=== PATIENT | male | born 1950 | race Caucasian/White ===

== ENCOUNTER → 2020-02-28 | Outpatient (CLI) | payer MEDICARE ==
--- NOTE | 2020-02-28 17:51 | Diagnostic Imaging Report ---
Perfusion Lung Scan NOTE: Lung ventilation studies with xenon are not being performed per the recommendation of the [employer]. It is not possible to be certain that the ventilation system is adequately disinfected. Ventilation studies with Tc-99m DTPA particles is contraindicated because the delivery by nebulization generates too many water droplets from the patient's airway. Clinical Information: 69 M with dyspnea x 1 month Comparison: None available Discussion: Ventilation images were not obtained. See note above. Perfusion images of the lungs were obtained in multiple projections following intravenous administration of approximately 6 mCi of Tc-99m MAA. Distribution of tracer is irregular throughout the lungs., Widening of the left major fissure is noted. There are no segmental perfusion defects of any size. The cardiomediastinal silhouette is borderline enlarged. Impression: 1. Scan findings represent a LOW probability for acute pulmonary embolic disease based on the perfusion-only PIOPED II criteria. Ventilation imaging would not affect the assigned probability. 2. Scan findings are compatible with diffuse parenchymal and/or obstructive lung disease. Widening in the left major fissure may be due to loculated effusion or scarring. 3. Borderline enlarged cardiac silhouette. Signed by: Dr. Helga Fernandez M.D. on 02/28/2020 5:47 PM
== END ==
LOC: NM 17:21
PROVIDERS: ATTEND Internal Medicine Critical Care Medicine
DX: R06.00 Dyspnea, unspecified (principal)
CPT/HCPCS: 78597; A9540

== ENCOUNTER → 2021-01-25 | Outpatient (CLI) | payer MEDICARE ==
[2021-01-25 14:40] LABS: BASOPHILS # (AUTO) 0.1 (0.0-0.1); BASOPHILS % 0.9 % (0.0-1.0); EOSINOPHILS # (AUTO) 0.3 (0.0-0.4); EOSINOPHILS % 4.6 % (0.0-6.0); HEMATOCRIT 35.6 % (38.2-49.6); LYMPHOCYTES # (AUTO) 1.1 (1.0-3.2); LYMPHOCYTES % 17.4 % (18.0-39.1); MEAN CORPUSCULAR HEMOGLOBIN 28.5 pg (28-32); MEAN CORPUSCULAR HGB CONC 30.9 g/dL (31-35); MEAN CORPUSCULAR VOLUME 92.2 fL (81-99); MONOCYTES # (AUTO) 0.9 (0.2-0.8); MONOCYTES % 14.2 % (4.4-11.3); NEUTROPHILS % 62.6 % (38.7-80.0); PLATELET COUNT 191 x10e3/uL (140-360); RED BLOOD COUNT 3.86 x10e6/uL (4.3-5.7); RED CELL DISTRIBUTION WIDTH 14.5 % (11.7-14.4)
[2021-01-25 14:57] LABS: ALANINE AMINOTRANSFERASE 15 IU/L (0-55); ALBUMIN 3.6 g/dL (3.5-5.0); ALKALINE PHOSPHATASE 86 IU/L (40-150); ANION GAP 13.9 mmol/L (8-16); BLOOD UREA NITROGEN 17 mg/dL (7-26); BUN/CREATININE RATIO 15 (6-25); CALCIUM 8.7 mg/dL (8.4-10.2); CARBON DIOXIDE 33 mmol/L (22-29); CHLORIDE 98 mmol/L (98-107); CREATININE, SERUM 1.16 mg/dL (0.72-1.25); EST GLOMERULAR FILTRATION RATE > 60 ML/MIN (60-); GLUCOSE 113 mg/dL (74-118); POTASSIUM 4.9 mmol/L (3.5-5.1); SODIUM 140 mmol/L (136-145)
== END ==
LOC: LAB 13:34
PROVIDERS: ATTEND Internal Medicine Critical Care Medicine
DX: R06.00 Dyspnea, unspecified (principal)
CPT/HCPCS: 36415; 71046; 80053; 83880; 85025; 85379

== ENCOUNTER → 2021-02-08 | Outpatient (CLI) | payer MEDICARE ==
[~2021-02-08] MED LIST: IOPAMIDOL 370 MG/ML 200 ML INFUS..BTL INJ ONE; SODIUM CHLORIDE 0.9% 250ML 500 ML ONE; SODIUM CHLORIDE 0.9% 50ML 50 ML ONE
[2021-02-08 16:21] LABS: CREATININE, SERUM 1.31 mg/dL (0.72-1.25)
== END ==
LOC: CT 15:34
PROVIDERS: ATTEND Internal Medicine Critical Care Medicine
DX: R06.00 Dyspnea, unspecified (principal); R79.89 Other specified abnormal findings of blood chemistry
CPT/HCPCS: 36415; 71260; 82565; 84520; J7050; Q9967

== ENCOUNTER 2021-06-07 12:39 | Inpatient (IN) | payer MEDICARE, OTHER ==
[~2021-06-07] VITALS: Ht 177.8 cm; Wt 145.6 kg
[2021-06-07] MEDS ORDERED: ASPIRIN 81 MG CHEW TAB PO ONE (13:15)
[2021-06-07] MEDS ORDERED: FUROSEMIDE INJ 10 MG/ML 4 ML VIAL IV ONE ×2 (13:15→21:15)
[2021-06-07 13:51] LABS: INR 1.22; PROTHROMBIN TIME 15.7 seconds (11.9-14.5)
[2021-06-07 13:58] LABS: ALBUMIN 3.4 g/dL (3.5-5.0); ANION GAP 18.4 mmol/L (8-16); CALCIUM 9.3 mg/dL (8.4-10.2); CREATININE, SERUM 1.33 mg/dL (0.72-1.25); POTASSIUM 4.4 mmol/L (3.5-5.1)
[2021-06-07 14:02] LABS: BASOPHILS # (AUTO) 0.1 (0.0-0.1); BASOPHILS % 1.3 % (0.0-1.0); EOSINOPHILS # (AUTO) 0.1 (0.0-0.4); EOSINOPHILS % 1.4 % (0.0-6.0); HEMATOCRIT 33.2 % (38.2-49.6); HEMOGLOBIN 9.7 g/dL (14.0-18.0); LYMPHOCYTES # (AUTO) 1.3 (1.0-3.2); LYMPHOCYTES % 17.9 % (18.0-39.1); MEAN CORPUSCULAR HEMOGLOBIN 26.1 pg (28-32); MEAN CORPUSCULAR HGB CONC 29.2 g/dL (31-35); MEAN CORPUSCULAR VOLUME 89.5 fL (81-99); MONOCYTES # (AUTO) 1.2 (0.2-0.8); MONOCYTES % 17.3 % (4.4-11.3); NEUTROPHILS # (AUTO) 4.4 (2.1-6.9); NEUTROPHILS % 61.7 % (38.7-80.0); PLATELET COUNT 204 x10e3/uL (140-360); RED BLOOD COUNT 3.71 x10e6/uL (4.3-5.7)
[2021-06-07 14:06] LABS: CREATINE KINASE MB 4.7 ng/mL (0-5.0)
[2021-06-07 20:00] VITALS: BP 158/90
[2021-06-07 21:00] LABS: CREATINE KINASE MB 4.9 ng/mL (0-5.0)
[2021-06-07 22:13] VITALS: BP 132/53
[2021-06-07] MEDS ORDERED: PRILOSEC10 M1 PO (22:18)
[2021-06-07] MEDS ORDERED: LIPITOR20 MG PO (22:18)
[2021-06-07] MEDS ORDERED: AMLODIPINE BESYL5 MG PO (22:18)
[2021-06-07] MEDS ORDERED: PROVENTIL HFA6.7 GM INH (22:18)
[2021-06-07] MEDS ORDERED: TORSEMIDE100 MG PO (22:18)
[2021-06-07] MEDS ORDERED: PERPHENAZINE2 MG PO (22:18)
[2021-06-07] MEDS ORDERED: TERAZOSIN HCL1 MG PO (22:18)
[2021-06-07] MEDS ORDERED: METOPROLOL SUCC50 MG PO (22:18)
[2021-06-07 22:33] VITALS: BP 132/53
[2021-06-07 22:35] VITALS: BP 132/53
[2021-06-08] VITALS (9 sets, daily range): BP systolic 108–167; BP diastolic 74–91
[2021-06-08 06:24] LABS: BASOPHILS # (AUTO) 0.1 (0.0-0.1); BASOPHILS % 1.1 % (0.0-1.0); EOSINOPHILS # (AUTO) 0.1 (0.0-0.4); EOSINOPHILS % 1.5 % (0.0-6.0); HEMATOCRIT 34.4 % (38.2-49.6); LYMPHOCYTES # (AUTO) 0.8 (1.0-3.2); LYMPHOCYTES % 10.6 % (18.0-39.1); MEAN CORPUSCULAR HGB CONC 29.1 g/dL (31-35); MEAN CORPUSCULAR VOLUME 89.4 fL (81-99); MONOCYTES # (AUTO) 1.1 (0.2-0.8); MONOCYTES % 15.3 % (4.4-11.3); NEUTROPHILS # (AUTO) 5.3 (2.1-6.9); PLATELET COUNT 195 x10e3/uL (140-360); RED BLOOD COUNT 3.85 x10e6/uL (4.3-5.7); RED CELL DISTRIBUTION WIDTH 14.8 % (11.7-14.4)
[2021-06-08 07:04] LABS: ALBUMIN 3.5 g/dL (3.5-5.0); ANION GAP 17.9 mmol/L (8-16); CALCIUM 8.9 mg/dL (8.4-10.2); CREATININE, SERUM 1.29 mg/dL (0.72-1.25); POTASSIUM 3.9 mmol/L (3.5-5.1)
[2021-06-08 07:12] LABS: CREATINE KINASE MB 4.1 ng/mL (0-5.0)
[2021-06-08] MEDS ORDERED: ALBUTEROL SULFATE HFA 8GM INHALATION AEROSOL INH PRN (08:00)
[2021-06-08] MEDS: FUROSEMIDE INJ 10 MG/ML 4 ML VIAL IV SCH ×2 (08:40→20:50)
[2021-06-08] MEDS: METOPROLOL SUCCINATE 50 MG TAB XL PO SCH ×2 (08:40→16:41)
[2021-06-08 14:47] LABS: CREATINE KINASE MB 2.7 ng/mL (0-5.0)
[2021-06-08] MEDS: PIPERACILLIN/TAZOBACTAM 2.25 GM in SODIUM CHLORIDE 0.9% 50ML 50 ML IV SCH (14:52)
[2021-06-08] MEDS ORDERED: AMIODARONE 900MG 500 ML IV SCH (17:30)
[2021-06-08] MEDS: TERAZOSIN HCL 1 MG CAP PO SCH (20:50)
[2021-06-08] MEDS: ATORVASTATIN 20 MG TAB PO SCH (20:51)
[2021-06-09] VITALS (9 sets, daily range): BP systolic 87–155; BP diastolic 51–79
[2021-06-09] MEDS: AMIODARONE 900MG 500 ML IV SCH ×2 (00:04→21:15)
[2021-06-09] MEDS: PIPERACILLIN/TAZOBACTAM 2.25 GM in SODIUM CHLORIDE 0.9% 50ML 50 ML IV SCH ×2 (03:26→13:34)
[2021-06-09 05:39] LABS: BASOPHILS # (AUTO) 0.1 (0.0-0.1); BASOPHILS % 0.7 % (0.0-1.0); EOSINOPHILS # (AUTO) 0.1 (0.0-0.4); EOSINOPHILS % 1.6 % (0.0-6.0); HEMATOCRIT 33.9 % (38.2-49.6); LYMPHOCYTES % 13.5 % (18.0-39.1); MEAN CORPUSCULAR HEMOGLOBIN 26.7 pg (28-32); MEAN CORPUSCULAR HGB CONC 29.5 g/dL (31-35); MEAN CORPUSCULAR VOLUME 90.6 fL (81-99); MONOCYTES # (AUTO) 1.3 (0.2-0.8); MONOCYTES % 17.3 % (4.4-11.3); NEUTROPHILS % 66.4 % (38.7-80.0); PLATELET COUNT 171 x10e3/uL (140-360); RED BLOOD COUNT 3.74 x10e6/uL (4.3-5.7); RED CELL DISTRIBUTION WIDTH 15.1 % (11.7-14.4)
[2021-06-09 06:06] LABS: ALBUMIN 3.2 g/dL (3.5-5.0); ALBUMIN/GLOBULIN RATIO 0.9 (0.8-2.0); ANION GAP 13.7 mmol/L (8-16); CALCIUM 8.5 mg/dL (8.4-10.2); CREATININE, SERUM 1.55 mg/dL (0.72-1.25); POTASSIUM 3.7 mmol/L (3.5-5.1)
[2021-06-09] MEDS: PERPHENAZINE 2 MG PO SCH ×3 (07:40→14:27)
[2021-06-09] MEDS: FUROSEMIDE INJ 10 MG/ML 4 ML VIAL IV SCH ×2 (08:42→20:31)
[2021-06-09] MEDS: METOPROLOL SUCCINATE 50 MG TAB XL PO SCH ×2 (08:42→14:28)
[2021-06-09] MEDS: OMEPRAZOLE 20 MG CAP PO SCH (08:42)
[2021-06-09] MEDS ORDERED: ASPIRIN 325 MG TAB PO SCH (09:00)
[2021-06-09] MEDS: ACETAZOLAMIDE 250 MG TAB PO SCH (13:37)
[2021-06-09 13:51] LABS: ABG PH 7.36 (7.35-7.45)
[2021-06-09 13:52] LABS: ABG HCO3 23 mmol/L (22-26); ABG PCO2 84 mmHg (35-45); ABG PO2 67 mmHg (80-105); ABG TCO2 50
[2021-06-09] MEDS: TERAZOSIN HCL 1 MG CAP PO SCH (20:31)
[2021-06-09] MEDS: ATORVASTATIN 20 MG TAB PO SCH (20:32)
[2021-06-09] MEDS: ACETAMINOPHEN 650 MG SUPP PR PRN (21:00)
[2021-06-10] VITALS (18 sets, daily range): BP systolic 109–172; BP diastolic 56–121
[2021-06-10] MEDS: PIPERACILLIN/TAZOBACTAM 2.25 GM in SODIUM CHLORIDE 0.9% 50ML 50 ML IV SCH ×2 (02:21→14:39)
[2021-06-10 06:20] LABS: BASOPHILS # (AUTO) 0.1 (0.0-0.1); BASOPHILS % 0.9 % (0.0-1.0); EOSINOPHILS # (AUTO) 0.1 (0.0-0.4); HEMATOCRIT 33.9 % (38.2-49.6); HEMOGLOBIN 9.5 g/dL (14.0-18.0); LYMPHOCYTES # (AUTO) 1.2 (1.0-3.2); LYMPHOCYTES % 14.1 % (18.0-39.1); MEAN CORPUSCULAR VOLUME 92.9 fL (81-99); MONOCYTES # (AUTO) 1.6 (0.2-0.8); MONOCYTES % 19.5 % (4.4-11.3); NEUTROPHILS # (AUTO) 5.2 (2.1-6.9); NEUTROPHILS % 63.9 % (38.7-80.0); PLATELET COUNT 187 x10e3/uL (140-360); RED BLOOD COUNT 3.65 x10e6/uL (4.3-5.7); RED CELL DISTRIBUTION WIDTH 15.4 % (11.7-14.4)
[2021-06-10 06:49] LABS: ALBUMIN 3.2 g/dL (3.5-5.0); ALBUMIN/GLOBULIN RATIO 0.9 (0.8-2.0); ANION GAP 13.6 mmol/L (8-16); CALCIUM 8.4 mg/dL (8.4-10.2); CREATININE, SERUM 1.58 mg/dL (0.72-1.25); POTASSIUM 3.6 mmol/L (3.5-5.1)
[2021-06-10] MEDS: OMEPRAZOLE 20 MG CAP PO SCH (07:30)
[2021-06-10] MEDS: METOPROLOL SUCCINATE 50 MG TAB XL PO SCH ×2 (08:00→17:00)
[2021-06-10] MEDS: FUROSEMIDE INJ 10 MG/ML 4 ML VIAL IV SCH ×2 (08:40→21:31)
[2021-06-10] MEDS ORDERED: HALOPERIDOL LACTATE 5 MG/ML VIAL IM ONE (08:45)
[2021-06-10] MEDS: ACETAZOLAMIDE 250 MG TAB PO SCH (09:00)
[2021-06-10] MEDS: PERPHENAZINE 2 MG PO SCH ×2 (09:00→17:00)
[2021-06-10] MEDS: ASPIRIN 81 MG ENTERIC COATED PO SCH (09:00)
[2021-06-10 09:57] LABS: ABG HCO3 51 mmol/L (22-26); ABG PCO2 111 mmHg (35-45); ABG PH 7.27 (7.35-7.45); ABG PO2 89 mmHg (80-105)
[2021-06-10 09:58] LABS: ABG TCO2 > 50
[2021-06-10 13:20] LABS: CLARITY,URINE SL CLOUDY (CLEAR); COLOR,URINE YELLOW (YELLOW); LEUKOCYTE ESTERASE ,URINE NEGATIVE (NEGATIVE)
[2021-06-10 13:21] LABS: KETONES,URINE TRACE (NEGATIVE); NITRITE,URINE NEGATIVE (NEGATIVE); PROTEIN,URINE DIPSTICK 1+ (NEGATIVE)
[2021-06-10 13:27] LABS: BACTERIA,URINE RARE /HPF; EPITHELIAL CELLS,URINE FEW /LPF; RBC,URINE >50 /HPF (0-5); WBC,URINE (MAN) 21-50 /HPF (0-5)
[2021-06-10] MEDS ORDERED: SODIUM CHLORIDE 0.9% 250ML 250 ML ONE (14:39)
[2021-06-10] MEDS: DEXMEDETOMIDINE 400MCG/NS100ML 100 ML IV PRN ×2 (14:40→23:57)
[2021-06-10 14:59] LABS: CREATININE,URINE RANDOM 53.7 mg/dL (63-166); TOTAL PROTEIN, URINE 18.8 mg/dL (1-14)
[2021-06-10] MEDS: POTASSIUM CHLORIDE 20 MEQ TAB CR PO SCH (17:00)
[2021-06-10] MEDS ORDERED: POTASSIUM CHLORIDE 20MEQ/100ML 100 ML IV ONE (20:00)
[2021-06-10] MEDS ORDERED: HALOPERIDOL LACTATE 5 MG/ML VIAL IM PRN (20:15)
[2021-06-10] MEDS: TERAZOSIN HCL 1 MG CAP PO SCH (21:00)
[2021-06-10] MEDS: ATORVASTATIN 20 MG TAB PO SCH (21:00)
[2021-06-10] MEDS ORDERED: ACETAMINOPHEN 1000 MG/100 ML IV ONE (21:15)
[2021-06-11] VITALS (28 sets, daily range): BP systolic 105–175; BP diastolic 54–122
[2021-06-11] MEDS ORDERED: ZIPRASIDONE 20 MG VIAL IM STA (01:06)
[2021-06-11] MEDS ORDERED: ZIPRASIDONE 20 MG VIAL IM ONE (01:20)
[2021-06-11] MEDS: AMIODARONE 900MG 500 ML IV SCH (02:29)
[2021-06-11] MEDS: PIPERACILLIN/TAZOBACTAM 2.25 GM in SODIUM CHLORIDE 0.9% 50ML 50 ML IV SCH ×2 (02:39→14:57)
[2021-06-11] MEDS: DEXMEDETOMIDINE 400MCG/NS100ML 100 ML IV PRN ×6 (04:09→23:35)
[2021-06-11 06:33] LABS: BASOPHILS # (AUTO) 0.1 (0.0-0.1); BASOPHILS % 0.8 % (0.0-1.0); EOSINOPHILS # (AUTO) 0.1 (0.0-0.4); EOSINOPHILS % 1.1 % (0.0-6.0); HEMATOCRIT 33.4 % (38.2-49.6); HEMOGLOBIN 9.5 g/dL (14.0-18.0); LYMPHOCYTES # (AUTO) 0.9 (1.0-3.2); LYMPHOCYTES % 14.2 % (18.0-39.1); MEAN CORPUSCULAR HEMOGLOBIN 26.1 pg (28-32); MEAN CORPUSCULAR HGB CONC 28.4 g/dL (31-35); MEAN CORPUSCULAR VOLUME 91.8 fL (81-99); MONOCYTES % 15.8 % (4.4-11.3); NEUTROPHILS # (AUTO) 4.2 (2.1-6.9); NEUTROPHILS % 67.8 % (38.7-80.0); PLATELET COUNT 176 x10e3/uL (140-360); RED BLOOD COUNT 3.64 x10e6/uL (4.3-5.7); RED CELL DISTRIBUTION WIDTH 14.7 % (11.7-14.4)
[2021-06-11 06:54] LABS: CALCIUM 8.8 mg/dL (8.4-10.2); CREATININE, SERUM 1.39 mg/dL (0.72-1.25); PHOSPHORUS 3.9 MG/DL (2.3-4.7)
[2021-06-11 07:09] LABS: FERRITIN 60.6 ng/mL (21.81-274.66)
[2021-06-11] MEDS: OMEPRAZOLE 20 MG CAP PO SCH (07:30)
[2021-06-11] MEDS: METOPROLOL SUCCINATE 50 MG TAB XL PO SCH ×2 (08:00→17:00)
[2021-06-11] MEDS: POTASSIUM CHLORIDE 20 MEQ TAB CR PO SCH ×2 (09:00→17:00)
[2021-06-11] MEDS: ACETAZOLAMIDE 250 MG TAB PO SCH (09:00)
[2021-06-11] MEDS: ASPIRIN 81 MG ENTERIC COATED PO SCH (09:00)
[2021-06-11] MEDS: PERPHENAZINE 2 MG PO SCH ×2 (09:00→17:00)
[2021-06-11] MEDS: FUROSEMIDE INJ 10 MG/ML 4 ML VIAL IV SCH ×2 (09:24→21:42)
[2021-06-11 16:16] LABS: ABG HCO3 47 mmol/L (22-26); ABG PCO2 88 mmHg (35-45); ABG PH 7.34 (7.35-7.45); ABG PO2 80 mmHg (80-105); ABG TCO2 50
[2021-06-11] MEDS: TERAZOSIN HCL 1 MG CAP PO SCH (21:00)
[2021-06-11] MEDS: ATORVASTATIN 20 MG TAB PO SCH (21:00)
[2021-06-12] VITALS (29 sets, daily range): BP systolic 121–187; BP diastolic 62–171
[2021-06-12] MEDS: DEXMEDETOMIDINE 400MCG/NS100ML 100 ML IV PRN ×4 (01:24→10:35)
[2021-06-12] MEDS: PIPERACILLIN/TAZOBACTAM 2.25 GM in SODIUM CHLORIDE 0.9% 50ML 50 ML IV SCH ×2 (03:19→14:16)
[2021-06-12] MEDS: AMIODARONE 900MG 500 ML IV SCH ×2 (05:22)
[2021-06-12 06:54] LABS: BASOPHILS # (AUTO) 0.1 (0.0-0.1); BASOPHILS % 0.8 % (0.0-1.0); EOSINOPHILS # (AUTO) 0.2 (0.0-0.4); EOSINOPHILS % 2.1 % (0.0-6.0); HEMATOCRIT 32.9 % (38.2-49.6); HEMOGLOBIN 9.9 g/dL (14.0-18.0); LYMPHOCYTES # (AUTO) 0.9 (1.0-3.2); LYMPHOCYTES % 12.9 % (18.0-39.1); MEAN CORPUSCULAR HEMOGLOBIN 26.3 pg (28-32); MEAN CORPUSCULAR HGB CONC 30.1 g/dL (31-35); MEAN CORPUSCULAR VOLUME 87.5 fL (81-99); MONOCYTES # (AUTO) 0.8 (0.2-0.8); MONOCYTES % 11.4 % (4.4-11.3); NEUTROPHILS # (AUTO) 5.2 (2.1-6.9); NEUTROPHILS % 72.4 % (38.7-80.0); PLATELET COUNT 174 x10e3/uL (140-360); RED BLOOD COUNT 3.76 x10e6/uL (4.3-5.7); RED CELL DISTRIBUTION WIDTH 14.4 % (11.7-14.4)
[2021-06-12 07:16] LABS: ALBUMIN 3.4 g/dL (3.5-5.0); ANION GAP 14.6 mmol/L (8-16); CREATININE, SERUM 1.3 mg/dL (0.72-1.25); POTASSIUM 3.6 mmol/L (3.5-5.1)
[2021-06-12] MEDS: OMEPRAZOLE 20 MG CAP PO SCH (07:22)
[2021-06-12] MEDS: METOPROLOL SUCCINATE 50 MG TAB XL PO SCH ×2 (07:22→17:00)
[2021-06-12] MEDS: POTASSIUM CHLORIDE 20 MEQ TAB CR PO SCH ×2 (08:45→15:48)
[2021-06-12] MEDS: ASPIRIN 81 MG ENTERIC COATED PO SCH (08:45)
[2021-06-12] MEDS: PERPHENAZINE 2 MG PO SCH ×2 (08:45→15:48)
[2021-06-12] MEDS: FUROSEMIDE INJ 10 MG/ML 4 ML VIAL IV SCH ×2 (09:02→20:27)
[2021-06-12] MEDS ORDERED: ZIPRASIDONE 20 MG VIAL IM NR (10:00)
[2021-06-12] MEDS: DEXMEDETOMIDINE 100 ML IV PRN ×2 (13:10→22:17)
[2021-06-12] MEDS: TERAZOSIN HCL 1 MG CAP PO SCH (20:27)
[2021-06-12] MEDS: ATORVASTATIN 20 MG TAB PO SCH (20:27)
[2021-06-13] VITALS (28 sets, daily range): BP systolic 101–176; BP diastolic 63–102
[2021-06-13] MEDS: PIPERACILLIN/TAZOBACTAM 2.25 GM in SODIUM CHLORIDE 0.9% 50ML 50 ML IV SCH ×2 (02:07→14:15)
[2021-06-13] MEDS: DEXMEDETOMIDINE 100 ML IV PRN ×5 (02:08→20:00)
[2021-06-13 06:24] LABS: BASOPHILS % 0.6 % (0.0-1.0); EOSINOPHILS # (AUTO) 0.2 (0.0-0.4); HEMATOCRIT 31.1 % (38.2-49.6); HEMOGLOBIN 10.2 g/dL (14.0-18.0); LYMPHOCYTES # (AUTO) 0.6 (1.0-3.2); LYMPHOCYTES % 10.1 % (18.0-39.1); MEAN CORPUSCULAR HEMOGLOBIN 29.3 pg (28-32); MEAN CORPUSCULAR HGB CONC 32.8 g/dL (31-35); MEAN CORPUSCULAR VOLUME 89.4 fL (81-99); MONOCYTES # (AUTO) 0.8 (0.2-0.8); MONOCYTES % 12.8 % (4.4-11.3); NEUTROPHILS # (AUTO) 4.5 (2.1-6.9); NEUTROPHILS % 72.9 % (38.7-80.0); PLATELET COUNT 145 x10e3/uL (140-360); RED BLOOD COUNT 3.48 x10e6/uL (4.3-5.7); RED CELL DISTRIBUTION WIDTH 17.4 % (11.7-14.4)
[2021-06-13 06:51] LABS: ALBUMIN 3.4 g/dL (3.5-5.0); ANION GAP 14.4 mmol/L (8-16); CALCIUM 9.4 mg/dL (8.4-10.2); CREATININE, SERUM 1.26 mg/dL (0.72-1.25); POTASSIUM 3.4 mmol/L (3.5-5.1)
[2021-06-13] MEDS: PERPHENAZINE 2 MG PO SCH ×2 (08:33→16:05)
[2021-06-13] MEDS: METOPROLOL SUCCINATE 50 MG TAB XL PO SCH (08:52)
[2021-06-13] MEDS: FUROSEMIDE INJ 10 MG/ML 4 ML VIAL IV SCH (08:52)
[2021-06-13] MEDS: POTASSIUM CHLORIDE 20 MEQ TAB CR PO SCH ×2 (08:52→16:05)
[2021-06-13] MEDS: ASPIRIN 81 MG ENTERIC COATED PO SCH (08:52)
[2021-06-13] MEDS: OMEPRAZOLE 20 MG CAP PO SCH (08:52)
[2021-06-13] MEDS: AMIODARONE 900MG 500 ML IV SCH (13:43)
[2021-06-13] MEDS: TERAZOSIN HCL 1 MG CAP PO SCH (20:56)
[2021-06-13] MEDS: ATORVASTATIN 20 MG TAB PO SCH (20:56)
[2021-06-14] VITALS (26 sets, daily range): BP systolic 113–181; BP diastolic 63–135
[2021-06-14] MEDS: DEXMEDETOMIDINE 100 ML IV PRN ×5 (00:50→23:07)
[2021-06-14] MEDS: PIPERACILLIN/TAZOBACTAM 2.25 GM in SODIUM CHLORIDE 0.9% 50ML 50 ML IV SCH ×2 (02:15→14:40)
[2021-06-14 04:57] LABS: BASOPHILS # (AUTO) 0.1 (0.0-0.1); BASOPHILS % 0.9 % (0.0-1.0); EOSINOPHILS # (AUTO) 0.2 (0.0-0.4); EOSINOPHILS % 3.8 % (0.0-6.0); HEMATOCRIT 35.5 % (38.2-49.6); HEMOGLOBIN 10.5 g/dL (14.0-18.0); LYMPHOCYTES # (AUTO) 0.7 (1.0-3.2); LYMPHOCYTES % 12.3 % (18.0-39.1); MEAN CORPUSCULAR HGB CONC 29.6 g/dL (31-35); MEAN CORPUSCULAR VOLUME 87.9 fL (81-99); MONOCYTES # (AUTO) 0.7 (0.2-0.8); MONOCYTES % 12.7 % (4.4-11.3); NEUTROPHILS # (AUTO) 3.7 (2.1-6.9); NEUTROPHILS % 70.1 % (38.7-80.0); PLATELET COUNT 173 x10e3/uL (140-360); RED BLOOD COUNT 4.04 x10e6/uL (4.3-5.7); RED CELL DISTRIBUTION WIDTH 14.4 % (11.7-14.4)
[2021-06-14] MEDS: METOPROLOL TARTRATE INJ 1 MG/ML VIAL IV PRN (05:00)
[2021-06-14 05:27] LABS: ALBUMIN 3.3 g/dL (3.5-5.0); ALBUMIN/GLOBULIN RATIO 0.9 (0.8-2.0); ANION GAP 13.5 mmol/L (8-16); CALCIUM 9.5 mg/dL (8.4-10.2); CREATININE, SERUM 1.16 mg/dL (0.72-1.25); POTASSIUM 3.5 mmol/L (3.5-5.1)
[2021-06-14] MEDS: OMEPRAZOLE 20 MG CAP PO SCH ×2 (07:30→08:58)
[2021-06-14] MEDS: FUROSEMIDE INJ 10 MG/ML 4 ML VIAL IV SCH (08:57)
[2021-06-14] MEDS: POTASSIUM CHLORIDE 20 MEQ TAB CR PO SCH ×2 (08:57→16:03)
[2021-06-14] MEDS: PERPHENAZINE 2 MG PO SCH ×2 (08:57→16:03)
[2021-06-14] MEDS: ASPIRIN 81 MG ENTERIC COATED PO SCH (08:57)
[2021-06-14] MEDS: METOPROLOL SUCCINATE 50 MG TAB XL PO SCH (08:58)
[2021-06-14] MEDS ORDERED: SODIUM CHLORIDE 0.45% 1,000 ML IV ONE (14:00)
[2021-06-14] MEDS: AMIODARONE 900MG 500 ML IV SCH (16:03)
[2021-06-14] MEDS: ATORVASTATIN 20 MG TAB PO SCH (20:41)
[2021-06-14] MEDS: TERAZOSIN HCL 1 MG CAP PO SCH (20:41)
[2021-06-14] MEDS: HEPARIN SOD (PORCINE) 5,000 UNIT/ML VIAL SC SCH (20:42)
[2021-06-15] VITALS (25 sets, daily range): BP systolic 106–144; BP diastolic 58–97
[2021-06-15] MEDS: PIPERACILLIN/TAZOBACTAM 2.25 GM in SODIUM CHLORIDE 0.9% 50ML 50 ML IV SCH ×2 (02:19→13:56)
[2021-06-15] MEDS: DEXMEDETOMIDINE 100 ML IV PRN ×4 (03:57→21:26)
[2021-06-15 06:29] LABS: BASOPHILS % 0.5 % (0.0-1.0); EOSINOPHILS # (AUTO) 0.2 (0.0-0.4); EOSINOPHILS % 3.3 % (0.0-6.0); HEMATOCRIT 34.8 % (38.2-49.6); HEMOGLOBIN 10.4 g/dL (14.0-18.0); LYMPHOCYTES # (AUTO) 0.5 (1.0-3.2); LYMPHOCYTES % 9.5 % (18.0-39.1); MEAN CORPUSCULAR HEMOGLOBIN 26.3 pg (28-32); MEAN CORPUSCULAR HGB CONC 29.9 g/dL (31-35); MEAN CORPUSCULAR VOLUME 87.9 fL (81-99); MONOCYTES # (AUTO) 0.7 (0.2-0.8); MONOCYTES % 11.6 % (4.4-11.3); NEUTROPHILS # (AUTO) 4.3 (2.1-6.9); NEUTROPHILS % 74.9 % (38.7-80.0); PLATELET COUNT 194 x10e3/uL (140-360); RED BLOOD COUNT 3.96 x10e6/uL (4.3-5.7); RED CELL DISTRIBUTION WIDTH 14.3 % (11.7-14.4)
[2021-06-15 07:03] LABS: ALBUMIN 3.2 g/dL (3.5-5.0); ANION GAP 14.3 mmol/L (8-16); CALCIUM 9.2 mg/dL (8.4-10.2); CREATININE, SERUM 1.08 mg/dL (0.72-1.25); POTASSIUM 3.3 mmol/L (3.5-5.1)
[2021-06-15] MEDS: OMEPRAZOLE 20 MG CAP PO SCH ×2 (07:30→08:07)
[2021-06-15] MEDS: PERPHENAZINE 2 MG PO SCH ×2 (08:20→16:49)
[2021-06-15] MEDS: ASPIRIN 81 MG ENTERIC COATED PO SCH (08:20)
[2021-06-15] MEDS: FUROSEMIDE INJ 10 MG/ML 4 ML VIAL IV SCH (08:20)
[2021-06-15] MEDS: HEPARIN SOD (PORCINE) 5,000 UNIT/ML VIAL SC SCH ×2 (08:24→20:56)
[2021-06-15] MEDS: METOPROLOL SUCCINATE 50 MG TAB XL PO SCH (09:00)
[2021-06-15] MEDS: POTASSIUM CHLORIDE 20 MEQ TAB CR PO SCH (09:00)
[2021-06-15] MEDS: KCL 20 MEQ PACKET/ ORAL SOLN NG SCH (12:46)
[2021-06-15] MEDS: TERAZOSIN HCL 1 MG CAP PO SCH (20:52)
[2021-06-15] MEDS: ATORVASTATIN 20 MG TAB PO SCH (20:53)
[2021-06-15] MEDS: AMIODARONE 900MG 500 ML IV SCH ×2 (21:01)
[2021-06-16] VITALS (25 sets, daily range): BP systolic 108–143; BP diastolic 51–99
[2021-06-16] MEDS: PIPERACILLIN/TAZOBACTAM 2.25 GM in SODIUM CHLORIDE 0.9% 50ML 50 ML IV SCH ×2 (02:50→13:45)
[2021-06-16 06:24] LABS: BASOPHILS % 0.7 % (0.0-1.0); EOSINOPHILS # (AUTO) 0.2 (0.0-0.4); EOSINOPHILS % 3.9 % (0.0-6.0); HEMATOCRIT 34.9 % (38.2-49.6); LYMPHOCYTES # (AUTO) 0.7 (1.0-3.2); LYMPHOCYTES % 12.5 % (18.0-39.1); MEAN CORPUSCULAR HEMOGLOBIN 25.8 pg (28-32); MEAN CORPUSCULAR HGB CONC 28.7 g/dL (31-35); MEAN CORPUSCULAR VOLUME 90.2 fL (81-99); MONOCYTES # (AUTO) 0.8 (0.2-0.8); NEUTROPHILS # (AUTO) 4.1 (2.1-6.9); NEUTROPHILS % 68.6 % (38.7-80.0); PLATELET COUNT 197 x10e3/uL (140-360); RED BLOOD COUNT 3.87 x10e6/uL (4.3-5.7); RED CELL DISTRIBUTION WIDTH 14.4 % (11.7-14.4)
[2021-06-16 06:38] LABS: ALBUMIN/GLOBULIN RATIO 0.9 (0.8-2.0); ANION GAP 8.6 mmol/L (8-16); CALCIUM 9.2 mg/dL (8.4-10.2); CREATININE, SERUM 1.2 mg/dL (0.72-1.25); POTASSIUM 3.6 mmol/L (3.5-5.1)
[2021-06-16] MEDS: DEXMEDETOMIDINE 100 ML IV PRN (06:40)
[2021-06-16] MEDS: OMEPRAZOLE 20 MG CAP PO SCH (07:30)
[2021-06-16] MEDS: METOPROLOL TARTRATE 25 MG TAB PO SCH ×2 (08:06→16:04)
[2021-06-16] MEDS: ASPIRIN 81 MG ENTERIC COATED PO SCH (08:28)
[2021-06-16] MEDS: FUROSEMIDE INJ 10 MG/ML 4 ML VIAL IV SCH (08:28)
[2021-06-16] MEDS: PERPHENAZINE 2 MG PO SCH ×2 (08:28→16:03)
[2021-06-16] MEDS: HEPARIN SOD (PORCINE) 5,000 UNIT/ML VIAL SC SCH (08:31)
[2021-06-16] MEDS: KCL 20 MEQ PACKET/ ORAL SOLN NG SCH (10:13)
[2021-06-16] MEDS ORDERED: ACETAZOLAMIDE SODIUM 500 MG/VIAL IV NR (11:30)
[2021-06-16 12:36] LABS: ABG PH 7.35 (7.35-7.45)
[2021-06-16 12:37] LABS: ABG HCO3 49 mmol/L (22-26); ABG PCO2 89 mmHg (35-45); ABG PO2 89 mmHg (80-105); ABG TCO2 50
[2021-06-16] MEDS: APIXABAN 5 MG TABLET PO SCH (16:03)
[2021-06-16] MEDS: ATORVASTATIN 20 MG TAB PO SCH (21:10)
[2021-06-16] MEDS: TERAZOSIN HCL 1 MG CAP PO SCH (21:10)
[2021-06-16] MEDS: AMIODARONE 900MG 500 ML IV SCH (23:46)
[2021-06-17] VITALS (24 sets, daily range): BP systolic 106–155; BP diastolic 61–133
[2021-06-17] MEDS: PIPERACILLIN/TAZOBACTAM 2.25 GM in SODIUM CHLORIDE 0.9% 50ML 50 ML IV SCH ×2 (03:20→14:38)
[2021-06-17] MEDS: METOPROLOL TARTRATE INJ 1 MG/ML VIAL IV PRN ×3 (04:50→21:42)
[2021-06-17 05:28] LABS: BASOPHILS # (AUTO) 0.1 (0.0-0.1); BASOPHILS % 0.8 % (0.0-1.0); EOSINOPHILS # (AUTO) 0.3 (0.0-0.4); EOSINOPHILS % 4.6 % (0.0-6.0); HEMATOCRIT 35.8 % (38.2-49.6); HEMOGLOBIN 10.3 g/dL (14.0-18.0); LYMPHOCYTES # (AUTO) 0.8 (1.0-3.2); LYMPHOCYTES % 11.6 % (18.0-39.1); MEAN CORPUSCULAR HEMOGLOBIN 26.1 pg (28-32); MEAN CORPUSCULAR HGB CONC 28.8 g/dL (31-35); MEAN CORPUSCULAR VOLUME 90.9 fL (81-99); MONOCYTES # (AUTO) 1.2 (0.2-0.8); MONOCYTES % 18.3 % (4.4-11.3); NEUTROPHILS # (AUTO) 4.2 (2.1-6.9); NEUTROPHILS % 64.4 % (38.7-80.0); PLATELET COUNT 222 x10e3/uL (140-360); RED BLOOD COUNT 3.94 x10e6/uL (4.3-5.7); RED CELL DISTRIBUTION WIDTH 14.5 % (11.7-14.4)
[2021-06-17 05:43] LABS: ALBUMIN 3.1 g/dL (3.5-5.0); ALBUMIN/GLOBULIN RATIO 0.9 (0.8-2.0); ANION GAP 12.6 mmol/L (8-16); CALCIUM 9.6 mg/dL (8.4-10.2); CREATININE, SERUM 1.42 mg/dL (0.72-1.25); POTASSIUM 3.6 mmol/L (3.5-5.1)
[2021-06-17] MEDS: OMEPRAZOLE 20 MG CAP PO SCH (07:30)
[2021-06-17] MEDS: FUROSEMIDE INJ 10 MG/ML 4 ML VIAL IV SCH (08:20)
[2021-06-17] MEDS: APIXABAN 5 MG TABLET PO SCH ×2 (08:20→16:12)
[2021-06-17] MEDS: KCL 20 MEQ PACKET/ ORAL SOLN NG SCH (08:20)
[2021-06-17] MEDS: ASPIRIN 81 MG ENTERIC COATED PO SCH (08:20)
[2021-06-17] MEDS: PERPHENAZINE 2 MG PO SCH ×2 (08:20→16:12)
[2021-06-17] MEDS: METOPROLOL TARTRATE 25 MG TAB PO SCH ×2 (08:20→16:12)
[2021-06-17] MEDS: TERAZOSIN HCL 1 MG CAP PO SCH (20:25)
[2021-06-17] MEDS: ATORVASTATIN 20 MG TAB PO SCH (20:26)
[2021-06-17] MEDS: ACETAMINOPHEN 650 MG SUPP PR PRN (20:27)
[2021-06-18] VITALS (17 sets, daily range): BP systolic 104–168; BP diastolic 67–106
[2021-06-18] MEDS: AMIODARONE 900MG 500 ML IV SCH (01:39)
[2021-06-18] MEDS: PIPERACILLIN/TAZOBACTAM 2.25 GM in SODIUM CHLORIDE 0.9% 50ML 50 ML IV SCH (04:32)
[2021-06-18] MEDS: METOPROLOL TARTRATE INJ 1 MG/ML VIAL IV PRN ×2 (06:26→18:00)
[2021-06-18 07:25] LABS: BASOPHILS # (AUTO) 0.1 (0.0-0.1); BASOPHILS % 1.4 % (0.0-1.0); EOSINOPHILS # (AUTO) 0.3 (0.0-0.4); HEMATOCRIT 38.1 % (38.2-49.6); HEMOGLOBIN 10.5 g/dL (14.0-18.0); LYMPHOCYTES # (AUTO) 0.9 (1.0-3.2); LYMPHOCYTES % 13.2 % (18.0-39.1); MEAN CORPUSCULAR HEMOGLOBIN 25.7 pg (28-32); MEAN CORPUSCULAR HGB CONC 27.6 g/dL (31-35); MEAN CORPUSCULAR VOLUME 93.2 fL (81-99); MONOCYTES # (AUTO) 1.2 (0.2-0.8); MONOCYTES % 16.7 % (4.4-11.3); NEUTROPHILS # (AUTO) 4.4 (2.1-6.9); NEUTROPHILS % 63.8 % (38.7-80.0); PLATELET COUNT 254 x10e3/uL (140-360); RED BLOOD COUNT 4.09 x10e6/uL (4.3-5.7); RED CELL DISTRIBUTION WIDTH 14.6 % (11.7-14.4)
[2021-06-18 07:50] LABS: ALBUMIN 3.1 g/dL (3.5-5.0); ALBUMIN/GLOBULIN RATIO 0.9 (0.8-2.0); ANION GAP 12.8 mmol/L (8-16); CREATININE, SERUM 1.41 mg/dL (0.72-1.25); POTASSIUM 3.8 mmol/L (3.5-5.1)
[2021-06-18] MEDS: APIXABAN 5 MG TABLET PO SCH ×2 (09:05→17:46)
[2021-06-18] MEDS: OMEPRAZOLE 20 MG CAP PO SCH (09:05)
[2021-06-18] MEDS: KCL 20 MEQ PACKET/ ORAL SOLN NG SCH (09:05)
[2021-06-18] MEDS: PERPHENAZINE 2 MG PO SCH ×2 (09:05→17:46)
[2021-06-18] MEDS: ASPIRIN 81 MG ENTERIC COATED PO SCH (09:05)
[2021-06-18] MEDS: METOPROLOL TARTRATE 25 MG TAB PO SCH ×2 (09:06→17:46)
[2021-06-18] MEDS: TERAZOSIN HCL 1 MG CAP PO SCH (21:12)
[2021-06-18] MEDS: ATORVASTATIN 20 MG TAB PO SCH (21:12)
[2021-06-19] VITALS (14 sets, daily range): BP systolic 101–140; BP diastolic 55–107
[2021-06-19] MEDS: AMIODARONE 900MG 500 ML IV SCH (01:18)
[2021-06-19 05:03] LABS: BASOPHILS # (AUTO) 0.1 (0.0-0.1); BASOPHILS % 1.1 % (0.0-1.0); EOSINOPHILS # (AUTO) 0.4 (0.0-0.4); EOSINOPHILS % 5.9 % (0.0-6.0); HEMATOCRIT 36.7 % (38.2-49.6); HEMOGLOBIN 10.3 g/dL (14.0-18.0); LYMPHOCYTES # (AUTO) 1.1 (1.0-3.2); LYMPHOCYTES % 15.9 % (18.0-39.1); MEAN CORPUSCULAR HEMOGLOBIN 26.1 pg (28-32); MEAN CORPUSCULAR HGB CONC 28.1 g/dL (31-35); MEAN CORPUSCULAR VOLUME 92.9 fL (81-99); MONOCYTES # (AUTO) 1.2 (0.2-0.8); MONOCYTES % 16.5 % (4.4-11.3); NEUTROPHILS # (AUTO) 4.2 (2.1-6.9); PLATELET COUNT 280 x10e3/uL (140-360); RED BLOOD COUNT 3.95 x10e6/uL (4.3-5.7); RED CELL DISTRIBUTION WIDTH 14.6 % (11.7-14.4)
[2021-06-19 05:35] LABS: ALBUMIN/GLOBULIN RATIO 0.9 (0.8-2.0); CALCIUM 9.5 mg/dL (8.4-10.2); CREATININE, SERUM 1.35 mg/dL (0.72-1.25)
[2021-06-19] MEDS: METOPROLOL TARTRATE INJ 1 MG/ML VIAL IV PRN (06:31)
[2021-06-19] MEDS: APIXABAN 5 MG TABLET PO SCH ×2 (10:05→16:40)
[2021-06-19] MEDS: ASPIRIN 81 MG ENTERIC COATED PO SCH (10:05)
[2021-06-19] MEDS: METOPROLOL TARTRATE 25 MG TAB PO SCH ×3 (10:05→17:21)
[2021-06-19] MEDS: OMEPRAZOLE 20 MG CAP PO SCH (10:05)
[2021-06-19] MEDS: KCL 20 MEQ PACKET/ ORAL SOLN NG SCH (10:05)
[2021-06-19] MEDS: PERPHENAZINE 2 MG PO SCH ×2 (10:05→16:40)
[2021-06-19] MEDS: AMIODARONE HCL 200 MG TAB PO SCH (14:10)
[2021-06-19] MEDS: TERAZOSIN HCL 1 MG CAP PO SCH (20:51)
[2021-06-19] MEDS: ATORVASTATIN 20 MG TAB PO SCH (20:51)
[2021-06-20] VITALS (7 sets, daily range): BP systolic 133–180; BP diastolic 66–98
[2021-06-20] MEDS: METOPROLOL TARTRATE 25 MG TAB PO SCH ×5 (00:13→23:53)
[2021-06-20 05:06] LABS: BASOPHILS # (AUTO) 0.1 (0.0-0.1); BASOPHILS % 1.5 % (0.0-1.0); EOSINOPHILS # (AUTO) 0.5 (0.0-0.4); EOSINOPHILS % 7.4 % (0.0-6.0); HEMATOCRIT 35.8 % (38.2-49.6); HEMOGLOBIN 10.1 g/dL (14.0-18.0); LYMPHOCYTES % 15.3 % (18.0-39.1); MEAN CORPUSCULAR HGB CONC 28.2 g/dL (31-35); MONOCYTES # (AUTO) 1.1 (0.2-0.8); MONOCYTES % 17.3 % (4.4-11.3); NEUTROPHILS # (AUTO) 3.8 (2.1-6.9); PLATELET COUNT 311 x10e3/uL (140-360); RED BLOOD COUNT 3.89 x10e6/uL (4.3-5.7); RED CELL DISTRIBUTION WIDTH 14.9 % (11.7-14.4)
[2021-06-20 05:28] LABS: ALBUMIN 3.1 g/dL (3.5-5.0); ALBUMIN/GLOBULIN RATIO 0.9 (0.8-2.0); ANION GAP 12.4 mmol/L (8-16); CALCIUM 9.6 mg/dL (8.4-10.2); CREATININE, SERUM 1.28 mg/dL (0.72-1.25); POTASSIUM 4.4 mmol/L (3.5-5.1)
[2021-06-20] MEDS: OMEPRAZOLE 20 MG CAP PO SCH (08:00)
[2021-06-20] MEDS: APIXABAN 5 MG TABLET PO SCH ×2 (09:00→13:08)
[2021-06-20] MEDS: PERPHENAZINE 2 MG PO SCH ×2 (09:00→17:41)
[2021-06-20] MEDS: ASPIRIN 81 MG ENTERIC COATED PO SCH (09:00)
[2021-06-20] MEDS: AMIODARONE HCL 200 MG TAB PO SCH ×2 (09:00→17:41)
[2021-06-20] MEDS: POTASSIUM CHLORIDE 10MEQ EA PO SCH (09:00)
[2021-06-20 14:13] LABS: CLARITY,URINE CLOUDY (CLEAR); COLOR,URINE RED (YELLOW); KETONES,URINE 1+ (NEGATIVE); LEUKOCYTE ESTERASE ,URINE NEGATIVE (NEGATIVE); NITRITE,URINE POSITIVE (NEGATIVE); PROTEIN,URINE DIPSTICK >=300 (NEGATIVE)
[2021-06-20] MEDS: PIPERACILLIN/TAZOBACTAM 3.375 GM in SODIUM CHLORIDE 0.9% 50ML 50 ML IV SCH ×2 (14:35→22:15)
[2021-06-20 14:38] LABS: RBC,URINE >50 /HPF (0-5); WBC,URINE (MAN) 0-5 /HPF (0-5)
[2021-06-20 14:39] LABS: BACTERIA,URINE MODERATE /HPF
[2021-06-20] MEDS ORDERED: SODIUM CHLORIDE 0.9% 250ML 250 ML ONE (22:14)
[2021-06-20] MEDS: TERAZOSIN HCL 1 MG CAP PO SCH (22:15)
[2021-06-20] MEDS: ATORVASTATIN 20 MG TAB PO SCH (22:15)
[2021-06-20] MEDS: AMIODARONE 900MG 500 ML IV SCH ×2 (23:57)
[2021-06-21] VITALS (8 sets, daily range): BP systolic 114–161; BP diastolic 56–73
[2021-06-21 05:03] LABS: BASOPHILS # (AUTO) 0.1 (0.0-0.1); BASOPHILS % 1.1 % (0.0-1.0); EOSINOPHILS # (AUTO) 0.3 (0.0-0.4); EOSINOPHILS % 5.3 % (0.0-6.0); HEMATOCRIT 36.2 % (38.2-49.6); HEMOGLOBIN 10.2 g/dL (14.0-18.0); LYMPHOCYTES # (AUTO) 1.4 (1.0-3.2); LYMPHOCYTES % 21.6 % (18.0-39.1); MEAN CORPUSCULAR HEMOGLOBIN 26.1 pg (28-32); MEAN CORPUSCULAR HGB CONC 28.2 g/dL (31-35); MEAN CORPUSCULAR VOLUME 92.6 fL (81-99); MONOCYTES # (AUTO) 1.2 (0.2-0.8); MONOCYTES % 18.4 % (4.4-11.3); NEUTROPHILS # (AUTO) 3.3 (2.1-6.9); NEUTROPHILS % 52.8 % (38.7-80.0); PLATELET COUNT 275 x10e3/uL (140-360); RED BLOOD COUNT 3.91 x10e6/uL (4.3-5.7); RED CELL DISTRIBUTION WIDTH 14.9 % (11.7-14.4)
[2021-06-21 05:30] LABS: ALBUMIN 3.4 g/dL (3.5-5.0); ALBUMIN/GLOBULIN RATIO 0.9 (0.8-2.0); ANION GAP 15.9 mmol/L (8-16); CALCIUM 9.4 mg/dL (8.4-10.2); CREATININE, SERUM 1.39 mg/dL (0.72-1.25); POTASSIUM 4.9 mmol/L (3.5-5.1)
[2021-06-21] MEDS: PIPERACILLIN/TAZOBACTAM 3.375 GM in SODIUM CHLORIDE 0.9% 50ML 50 ML IV SCH ×3 (06:02→21:29)
[2021-06-21] MEDS: METOPROLOL TARTRATE 25 MG TAB PO SCH ×3 (06:03→17:20)
[2021-06-21] MEDS: AMIODARONE HCL 200 MG TAB PO SCH ×2 (09:39→16:48)
[2021-06-21] MEDS: PERPHENAZINE 2 MG PO SCH ×2 (09:39→16:48)
[2021-06-21] MEDS: OMEPRAZOLE 20 MG CAP PO SCH (09:39)
[2021-06-21] MEDS: ASPIRIN 81 MG ENTERIC COATED PO SCH (09:39)
[2021-06-21] MEDS: APIXABAN 5 MG TABLET PO SCH (09:39)
[2021-06-21] MEDS: AMLODIPINE BESYLATE 10 MG TAB PO SCH (09:40)
[2021-06-21] MEDS: POTASSIUM CHLORIDE 10MEQ EA PO SCH (09:40)
[2021-06-21] MEDS ORDERED: SODIUM CHLORIDE 0.9% 500ML 500 ML ONE (14:16)
[2021-06-21] MEDS: ATORVASTATIN 20 MG TAB PO SCH (21:29)
[2021-06-21] MEDS: TERAZOSIN HCL 1 MG CAP PO SCH (21:29)
[2021-06-21] MEDS: ACETAMINOPHEN 650 MG SUPP PR PRN (21:35)
[2021-06-22] VITALS (9 sets, daily range): BP systolic 105–146; BP diastolic 56–72
[2021-06-22] MEDS: AMIODARONE 900MG 500 ML IV SCH
[2021-06-22] MEDS: HYDROCODONE/APAP 5MG-325MG TAB PO PRN ×4 (00:32→20:50)
[2021-06-22] MEDS: PIPERACILLIN/TAZOBACTAM 3.375 GM in SODIUM CHLORIDE 0.9% 50ML 50 ML IV SCH ×3 (06:04→21:24)
[2021-06-22 06:34] LABS: BASOPHILS # (AUTO) 0.1 (0.0-0.1); BASOPHILS % 1.2 % (0.0-1.0); EOSINOPHILS # (AUTO) 0.3 (0.0-0.4); EOSINOPHILS % 4.9 % (0.0-6.0); HEMATOCRIT 34.8 % (38.2-49.6); HEMOGLOBIN 9.5 g/dL (14.0-18.0); LYMPHOCYTES # (AUTO) 1.3 (1.0-3.2); LYMPHOCYTES % 23.1 % (18.0-39.1); MEAN CORPUSCULAR HEMOGLOBIN 25.7 pg (28-32); MEAN CORPUSCULAR HGB CONC 27.3 g/dL (31-35); MEAN CORPUSCULAR VOLUME 94.3 fL (81-99); MONOCYTES # (AUTO) 0.9 (0.2-0.8); MONOCYTES % 16.4 % (4.4-11.3); NEUTROPHILS % 53.3 % (38.7-80.0); PLATELET COUNT 272 x10e3/uL (140-360); RED BLOOD COUNT 3.69 x10e6/uL (4.3-5.7); RED CELL DISTRIBUTION WIDTH 14.8 % (11.7-14.4)
[2021-06-22 06:56] LABS: ALBUMIN 3.2 g/dL (3.5-5.0); ANION GAP 13.1 mmol/L (8-16); CALCIUM 9.2 mg/dL (8.4-10.2); CREATININE, SERUM 1.46 mg/dL (0.72-1.25); POTASSIUM 5.1 mmol/L (3.5-5.1)
[2021-06-22] MEDS: OMEPRAZOLE 20 MG CAP PO SCH (08:39)
[2021-06-22] MEDS: ASPIRIN 81 MG ENTERIC COATED PO SCH (08:39)
[2021-06-22] MEDS: AMLODIPINE BESYLATE 10 MG TAB PO SCH (08:40)
[2021-06-22] MEDS: AMIODARONE HCL 200 MG TAB PO SCH ×2 (08:40→18:57)
[2021-06-22] MEDS: METOPROLOL SUCCINATE 50 MG TAB XL PO SCH (08:41)
[2021-06-22] MEDS: PERPHENAZINE 2 MG PO SCH ×3 (08:46→15:17)
[2021-06-22] MEDS: POTASSIUM CHLORIDE 10MEQ EA PO SCH (08:46)
[2021-06-22] MEDS: TERAZOSIN HCL 1 MG CAP PO SCH (20:50)
[2021-06-22] MEDS: ATORVASTATIN 20 MG TAB PO SCH (20:50)
[2021-06-23] VITALS (7 sets, daily range): BP systolic 115–159; BP diastolic 45–82
[2021-06-23] MEDS: HYDROCODONE/APAP 5MG-325MG TAB PO PRN ×3 (04:41→19:35)
[2021-06-23] MEDS: PIPERACILLIN/TAZOBACTAM 3.375 GM in SODIUM CHLORIDE 0.9% 50ML 50 ML IV SCH ×3 (06:40→22:07)
[2021-06-23] MEDS: OMEPRAZOLE 20 MG CAP PO SCH (07:30)
[2021-06-23] MEDS: AMIODARONE HCL 200 MG TAB PO SCH ×2 (08:41→17:00)
[2021-06-23] MEDS: POTASSIUM CHLORIDE 10MEQ EA PO SCH (08:41)
[2021-06-23] MEDS: ASPIRIN 81 MG ENTERIC COATED PO SCH (08:41)
[2021-06-23] MEDS: METOPROLOL SUCCINATE 50 MG TAB XL PO SCH (09:00)
[2021-06-23] MEDS: PERPHENAZINE 2 MG PO SCH ×2 (09:00→17:00)
[2021-06-23] MEDS: AMLODIPINE BESYLATE 10 MG TAB PO SCH (09:00)
[2021-06-23] MEDS: ATORVASTATIN 20 MG TAB PO SCH (21:15)
[2021-06-23] MEDS: TERAZOSIN HCL 1 MG CAP PO SCH (21:16)
[2021-06-24] VITALS (9 sets, daily range): BP systolic 118–147; BP diastolic 53–96
[2021-06-24] MEDS: PIPERACILLIN/TAZOBACTAM 3.375 GM in SODIUM CHLORIDE 0.9% 50ML 50 ML IV SCH (05:40)
[2021-06-24 06:18] LABS: BASOPHILS # (AUTO) 0.1 (0.0-0.1); BASOPHILS % 1.2 % (0.0-1.0); EOSINOPHILS # (AUTO) 0.2 (0.0-0.4); EOSINOPHILS % 4.2 % (0.0-6.0); HEMATOCRIT 31.6 % (38.2-49.6); LYMPHOCYTES % 16.8 % (18.0-39.1); MEAN CORPUSCULAR HEMOGLOBIN 26.3 pg (28-32); MEAN CORPUSCULAR HGB CONC 28.5 g/dL (31-35); MEAN CORPUSCULAR VOLUME 92.4 fL (81-99); MONOCYTES # (AUTO) 0.9 (0.2-0.8); MONOCYTES % 16.3 % (4.4-11.3); NEUTROPHILS # (AUTO) 3.4 (2.1-6.9); NEUTROPHILS % 60.3 % (38.7-80.0); PLATELET COUNT 275 x10e3/uL (140-360); RED BLOOD COUNT 3.42 x10e6/uL (4.3-5.7); RED CELL DISTRIBUTION WIDTH 15.1 % (11.7-14.4)
[2021-06-24 06:51] LABS: ALBUMIN 3.4 g/dL (3.5-5.0); ANION GAP 13.2 mmol/L (8-16); CALCIUM 9.1 mg/dL (8.4-10.2); CREATININE, SERUM 1.36 mg/dL (0.72-1.25); POTASSIUM 5.2 mmol/L (3.5-5.1)
[2021-06-24] MEDS: OMEPRAZOLE 20 MG CAP PO SCH (08:00)
[2021-06-24] MEDS: ASPIRIN 81 MG ENTERIC COATED PO SCH (08:58)
[2021-06-24] MEDS: AMIODARONE HCL 200 MG TAB PO SCH ×2 (08:58→16:22)
[2021-06-24] MEDS: METOPROLOL SUCCINATE 50 MG TAB XL PO SCH (08:59)
[2021-06-24] MEDS: AMLODIPINE BESYLATE 10 MG TAB PO SCH (08:59)
[2021-06-24] MEDS: PERPHENAZINE 2 MG PO SCH ×2 (09:00→16:22)
[2021-06-24] MEDS ORDERED: FUROSEMIDE INJ 10 MG/ML 4 ML VIAL IV ONE (11:45)
[2021-06-24] MEDS: TERAZOSIN HCL 1 MG CAP PO SCH (20:31)
[2021-06-24] MEDS: ATORVASTATIN 20 MG TAB PO SCH (20:31)
[2021-06-25 04:00] VITALS: BP 118/80
[2021-06-25 05:54] LABS: BASOPHILS # (AUTO) 0.1 (0.0-0.1); BASOPHILS % 1.4 % (0.0-1.0); EOSINOPHILS # (AUTO) 0.3 (0.0-0.4); EOSINOPHILS % 4.5 % (0.0-6.0); HEMATOCRIT 32.3 % (38.2-49.6); HEMOGLOBIN 9.2 g/dL (14.0-18.0); LYMPHOCYTES % 16.5 % (18.0-39.1); MEAN CORPUSCULAR HEMOGLOBIN 26.1 pg (28-32); MEAN CORPUSCULAR HGB CONC 28.5 g/dL (31-35); MEAN CORPUSCULAR VOLUME 91.8 fL (81-99); MONOCYTES # (AUTO) 0.9 (0.2-0.8); MONOCYTES % 15.6 % (4.4-11.3); NEUTROPHILS # (AUTO) 3.6 (2.1-6.9); NEUTROPHILS % 61.7 % (38.7-80.0); PLATELET COUNT 251 x10e3/uL (140-360); RED BLOOD COUNT 3.52 x10e6/uL (4.3-5.7); RED CELL DISTRIBUTION WIDTH 14.7 % (11.7-14.4)
[2021-06-25 06:25] LABS: ANION GAP 13.2 mmol/L (8-16); CALCIUM 9.4 mg/dL (8.4-10.2); CREATININE, SERUM 1.12 mg/dL (0.72-1.25); POTASSIUM 4.2 mmol/L (3.5-5.1)
[2021-06-25 08:00] VITALS: BP 118/80
[2021-06-25 08:18] VITALS: BP 142/63
[2021-06-25] MEDS: OMEPRAZOLE 20 MG CAP PO SCH (08:46)
[2021-06-25] MEDS: PERPHENAZINE 2 MG PO SCH (08:49)
[2021-06-25] MEDS: ASPIRIN 81 MG ENTERIC COATED PO SCH (08:49)
[2021-06-25] MEDS: AMLODIPINE BESYLATE 10 MG TAB PO SCH (08:49)
[2021-06-25] MEDS: AMIODARONE HCL 200 MG TAB PO SCH (08:49)
[2021-06-25] MEDS: METOPROLOL SUCCINATE 50 MG TAB XL PO SCH (08:50)
[2021-06-25] MEDS ORDERED: FUROSEMIDE INJ 10 MG/ML 4 ML VIAL IV ONE (08:55)
[2021-06-25] MEDS ORDERED: POTASSIUM CHLORIDE 10MEQ EA PO ONE (08:55)
[2021-06-25] MEDS ORDERED: ELIQUIS5 MG PO (10:02)
[2021-06-25] MEDS ORDERED: ASPIRIN EC81 MG PO (10:02)
[2021-06-25] MEDS ORDERED: AMIODARONE HCL200 MG PO (10:02)
[2021-06-25] MEDS ORDERED: TOPROL XL50 MG PO (10:02)
[2021-06-25] MEDS ORDERED: NORVASC10 MG PO (10:02)
== END 2021-06-25 11:22 | disposition home or self-care (01) | DRG 280 ==
LOC: ER 12:47 → ERHOLD 13:06 → MED/SURG3 18:40 → IMCU 06-09 20:27 → ICU 06-10 13:21 → MED/SURG2 06-20 20:45
PROVIDERS: ADMIT Internal Medicine; ATTEND Internal Medicine
PROC: 02HV33Z Insertion of Infusion Device into Superior Vena Cava, Percutaneous Approach (ICD-10-PCS; principal; 2021-06-08)
PROC: 5A09357 Assistance with Respiratory Ventilation, Less than 24 Consecutive Hours, Continuous Positive Airway Pressure (ICD-10-PCS; 2021-06-09)
PROC: 5A0935A Assistance with Respiratory Ventilation, Less than 24 Consecutive Hours, High Flow/Velocity Cannula (ICD-10-PCS; 2021-06-11)
DX: I13.0 Hypertensive heart and chronic kidney disease with heart failure and stage 1 through stage 4 chronic kidney disease, or unspecified chronic kidney disease (principal); I21.A1 Myocardial infarction type 2; J96.01 Acute respiratory failure with hypoxia; G93.41 Metabolic encephalopathy; I50.23 Acute on chronic systolic (congestive) heart failure; N17.0 Acute kidney failure with tubular necrosis; J96.02 Acute respiratory failure with hypercapnia; Z68.42 Body mass index [BMI] 45.0-49.9, adult; E87.3 Alkalosis; E87.4 Mixed disorder of acid-base balance; E66.01 Morbid (severe) obesity due to excess calories; F41.9 Anxiety disorder, unspecified; J44.9 Chronic obstructive pulmonary disease, unspecified; Z91.19 Patient's noncompliance with other medical treatment and regimen; K21.9 Gastro-esophageal reflux disease without esophagitis; D50.0 Iron deficiency anemia secondary to blood loss (chronic); N18.30 Chronic kidney disease, stage 3 unspecified; Z79.01 Long term (current) use of anticoagulants; R74.01 Elevation of levels of liver transaminase levels; N40.0 Benign prostatic hyperplasia without lower urinary tract symptoms; E87.6 Hypokalemia; Z99.81 Dependence on supplemental oxygen; D63.8 Anemia in other chronic diseases classified elsewhere; I48.0 Paroxysmal atrial fibrillation; F20.9 Schizophrenia, unspecified; R31.9 Hematuria, unspecified; E78.5 Hyperlipidemia, unspecified; G25.2 Other specified forms of tremor; Z86.73 Personal history of transient ischemic attack (TIA), and cerebral infarction without residual deficits
CPT/HCPCS: 36415; 36569; 36600; 51700; 70450; 70486; 71045; 71250; 72193; 74018; 74176; 80048; 80053; 81001; 82550; 82553; 82570; 82728; 82805; 82948; 83540; 83880; 84100; 84156; 84466; 84484; 85025; 85610; 87040; 87086; 93005; 93306; 93970; 94660; 96361; 97139; 99251; 99285; J0456; J1630; J1644; J1940; J2543; J3480; J3486; J7040; J7050; U0002